=== PATIENT | male | born 1945 | race Caucasian/White ===

== ENCOUNTER 2020-06-07 17:47 | Inpatient (IN) ==
[2020-06-07] MEDS ORDERED: SODIUM CHLORIDE 0.9% 1000ML 1,000 ML IV ONE (18:07)
--- NOTE | 2020-06-07 18:20 | Emergency Department Note ---
Impression & Plan Cerebrovascular accident, Left arm weakness ED Provider Note Provider: Karan Guzman MD DATE OF SERVICE: 06/07/2020 CHIEF COMPLAINT: Left arm weakness 75-year-old gentleman with a past medical history of diabetes HISTORY OF PRESENT ILLNESS: Patient is a not currently on any medications prese nts today referred from Dr. [facility] with concerns for stroke. Patient presents with daughter. He reports that over the last 3 to 4 weeks he has had 2 prior episodes of mini stroke/TIA but has not been hospitalized. Patient states he has had some issues with weakness in the second time for about 24 hours was unable to speak. This returned and then went to bed okay last night awoke this morning around 6:00 in the morning or so and had significant weakness of the left arm and actually fell out of bed. Patient states he is been walking okay denies any headache. Denies any speech issues today or vision changes. Denies any pain in the chest or abdomen. Patient is predominantly right-handed dominant states this is working okay as well as his legs. Patient denies any again visual changes or facial droop. Patient not currently on any anticoagulants or antiplatelet agents. REVIEW OF SYSTEMS: A total of 10 review of systems was obtained and negative except as stated above in the HPI. PAST MEDICAL HISTORY: As noted above MEDICATIONS: Herbals but no prescription medications SOCIAL HISTORY: Smoker, , lives at home PHYSICAL EXAM: GENERAL: alert and oriented in no acute distress on stretcher Head: normocephalic and atraumatic EYES: No injection, discharge or icterus. PERRL, EOMI. ENT: Mucous membranes pink and moist. Pharynx without erythema or exudate. LUNGS: Airway patent. No retractions. Breath sounds clear HEART: Regular rate and rhythm. No chest wall tenderness ABDOMEN: Soft and non-tender, without guarding or rebound. SKIN: Acyanotic, warm, dry, without rashes EXTREMITIES: Without swelling, tenderness or deformity other than a few very minor scattered healing abrasions. NEUROLOGICAL: No aphasia. No facial droop or slurred speech. Ambulatory. P ronator drift and diminished strength of the left upper extremity. Cerebellar ataxia with diminished left [id number] response but intact right [id number]. No leg drop noted. EK bpm sinus rhythm with PAC and PVCs. No acute ST segment elevation is noted although some scattered nonspecific inferior T wave inversions are noted. QTc 445. CONTINUOUS CARDIAC MONITORING: was ordered and showed a heart rate of bpm in Patient's hypertension was referred to the hospitalist HOSPITAL COURSE: [id number] Patient was first seen and H&P performed. 1934 Patient reassessed and updated still with left arm weakness. Patient and daughter were updated regarding plan for admission for further stroke work-up. I did discuss this with Dr. Patiño of [place] tele-stroke given the CTA of the head findings and the M2 stenosis versus thrombus. She agrees that there is no acute neuro interventional therapy to be offered at this time recommended standard stroke work-up and therapy. [address] Fuchs of [facility] hospitalist team. Patient's laboratory studies and imaging reviewed. Differential includes Infection, dehydration, metabolic abnormality, hypo/hyperglycemia, electrolyte disturbance, anemia, hypoxia, cardiac sources, intracerebral event, toxicologic, neurologic, as well as other pathologies. IMPRESSION/MEDICAL DECISION MAKING: Presentation seems very concerning for acute stroke versus TIA. Diabetic but not on medications were antiplatelets or anticoagulants. Outside the window for TPA. CT scan was completed as well as vessel scan and blood work. Discussed w ith patient and daughter and they are agreeable with the plan for further neurological inpatient care given his symptoms and my concern that this likely represents an acute CVA. Troponin detectable but not abnormal. No evidence of acute anemia or leukocytosis. Renal function within normal limits. No significant electrolyte abnormality. No evidence of liver dysfunction. CT Head without bleed but 2.8cm R frontal lobe hypodensity age indeterminate. Neck with plaques but no significant stenosis or dissection. 2.2cm R parotid gland incidentally noted. CTA of the head with an M2 stenosis versus thrombus. Discussed with tele-stroke. Did give aspirin. Tele-stroke, Dr. Patiño, states no acute neuro interventional therapy to be beneficial at this time for this patient. We will continue with standard stroke care and the hospitalist be contacted for further inpatient care. DIAGNOSIS: Stroke, Left arm weakness DISPOSITION: Hospitalist will evaluate Patient was agreeable with this plan. Past Med/Surg History Social History Feels Safe at Home: Yes Smoking Status: Current every day smoker Allergies Allergies Allergy/AdvReac Type Severity Reaction Status Date / Time No Known Allergies Allergy Unverified 06/07/20 18:31 Home Meds Home Medications Medication Instructions Recorded Confirmed magnesium hydroxide [Milk of 0 ml PO BID PRN 06/07/20 06/07/20 Magnesia] Results & Data (ED) Vital Signs Vital Signs - 24 hr 06/07/20 17:50 06/07/20 18:00 06/07/20 18:20 Temperature 37 C Temperature Source Oral Pulse Rate 81 85 78 Pulse Rate [Apical] 76 Pulse Rate from SpO2 Sensor 80 Respiratory Rate 16 19 21 Respiratory Effort / Characteristics Blood Pressure 160/83 H 158/83 H Blood Pressure [Left Arm] 158/83 H Blood Pressure Mean 108 97 Blood Pressure Mean [Left Arm] 108 Pulse Oximetry 93 91 Oxygen Delivery Method Room Air Sepsis Recent Fever Within 48 Hours No Sepsis New/Unexplained Change in Mental Status No Sepsis Action Taken by Nursing No Action Required 06/07/20 18:30 06/07/20 19:58 06/07/20 20:00 Temperature Temperature Source Pulse Rate 77 74 72 Pulse Rate [Apical] Pulse Rate from SpO2 Sensor 70 70 Respiratory Rate 20 16 19 Respiratory Effort / Characteristics Blood Pressure 138/85 151/78 H Blood Pressure [Left Arm] Blood Pressure Mean 92 96 Blood Pressure Mean [Left Arm] Pulse Oximetry 95 93 Oxygen Delivery Method Sepsis Recent Fever Within 48 Hours Sepsis New/Unexplained Change in Mental Status Sepsis Action Taken by Nursing 06/07/20 20:30 06/07/20 21:00 Temperature Temperature Source Pulse Rate 73 Pulse Rate [Apical] 62 Pulse Rate from SpO2 Sensor Respiratory Rate 25 H 18 Respiratory Effort / Characteristics Non-Labored Spontaneous Blood Pressure Blood Pressure [Left Arm] Blood Pressure Mean Blood Pressure Mean [Left Arm] Pulse Oximetry 96 Oxygen Delivery Method Room Air Sepsis Recent Fever Within 48 Hours Sepsis New/Unexplained Change in Mental Status Sepsis Action Taken by Nursing Laboratory Data Result diagrams: 06/07/20 18:20 06/07/20 18:20 Lab Results 06/07/20 06/07/20 06/07/20 Range/Units 18:20 18:20 18:20 WBC 8.20 (4.8-10.8) K/uL RBC 5.30 (4.7-6.1) M/uL Hgb 16.2 (14.0-18.0) g/dL POC Hgb (14.0-18.0) g/dl Hct 47.1 (42-52) % POC Hct (42-52) % MCV 88.9 (80-100) fL MCH 30.6 (25-34) pg MCHC 34.4 (32-36) g/dL RDW Std Deviation 42.9 (36.4-46.3) fL RDW Coeff of Nell 13.3 (11.5-14.5) % Plt Count 169 (130-400) K/uL MPV 10.4 (7.4-10.4) fL Immature Gran % (Auto) 0.5 % Neut % (Auto) 67.6 % Lymph % (Auto) 18.4 % [place] % (Auto) 10.7 % Eos % (Auto) 2.6 % Baso % (Auto) 0.2 % Neut # (Auto) 5.54 (1.4-6.5) K/uL Lymph # (Auto) 1.51 (1.2-3.4) K/uL [place] # (Auto) 0.88 H (0.11-0.59) K/uL Eos # (Auto) 0.21 (0-0.5) K/uL Baso # (Auto) 0.02 (0-0.2) K/uL Immature Gran # (Auto) 0.04 H (0.00-0.02) K/uL PT 10.4 (9.0-12.0) Seconds INR 1.0 (0.9-1.1) APTT 25.1 (21.0-31.0) Seconds PTT Ratio 0.9 POC Sodium (135-144) mmol/L Sodium (136-145) mmol/L POC Potassium (3.3-5.0) mmol/L Potassium (3.5-5.1) mmol/L POC Chloride (101-112) mmol/L Chloride (98-107) mmol/L Carbon Dioxide (21-32) mmol/L POC Total CO2 (24-31) mmol/L Anion Gap (3-11) POC Anion Gap (16-25) mmol/L POC BUN (7-18) mg/dl BUN (7-18) mg/dl Creatinine (0.6-1.4) mg/dl POC Creatinine (0.6-1.3) mg/dl Est Cr Clr Drug Dosing ml/min Est GFR ( Amer) Est GFR (Non-Af Amer) BUN/Creatinine Ratio (10-20) Glucose (70-99) mg/dl POC Glucose (other) (70-99) mg/dl Calcium (8.5-10.1) mg/dl POC Ioniz Calcium Rose (1.12-1.32) mmol/l Magnesium (1.8-2.4) mg/dl Total Bilirubin (0.2-1) mg/dl AST (15-37) U/L ALT (12-78) U/L Alkaline Phosphatase (45-117) U/L Troponin I (0-0.045) ng/ml Total Protein (6.4-8.2) gm/dl Albumin (3.4-5.0) gm/dl Globulin (2.5-4.0) gm/dl Albumin/Globulin Ratio (0.9-2) TSH (0.300-4.500) uIu/ml Blood Type Cancelled Antibody Screen Cancelled 06/07/20 06/07/20 06/07/20 Range/Units 18:20 18:29 19:21 WBC (4.8-10.8) K/uL RBC (4.7-6.1) M/uL Hgb (14.0-18.0) g/dL POC Hgb 16.3 (14.0-18.0) g/dl Hct (42-52) % POC Hct 48 (42-52) % MCV (80-100) fL MCH (25-34) pg MCHC (32-36) g/dL RDW Std Deviation (36.4-46.3) fL RDW Coeff of Nell (11.5-14.5) % Plt Count (130-400) K/uL MPV (7.4-10.4) fL Immature Gran % (Auto) % Neut % (Auto) % Lymph % (Auto) % [place] % (Auto) % Eos % (Auto) % Baso % (Auto) % Neut # (Auto) (1.4-6.5) K/uL Lymph # (Auto) (1.2-3.4) K/uL [place] # (Auto) (0.11-0.59) K/uL Eos # (Auto) (0-0.5) K/uL Baso # (Auto) (0-0.2) K/uL Immature Gran # (Auto) (0.00-0.02) K/uL PT (9.0-12.0) Seconds INR (0.9-1.1) APTT (21.0-31.0) Seconds PTT Ratio POC Sodium 137 (135-144) mmol/L Sodium 141 (136-145) mmol/L POC Potassium 4.6 (3.3-5.0) mmol/L Potassium 4.5 (3.5-5.1) mmol/L POC Chloride 103 (101-112) mmol/L Chloride 108 H (98-107) mmol/L Carbon Dioxide 27 (21-32) mmol/L POC Total CO2 28 (24-31) mmol/L Anion Gap 6.0 (3-11) POC Anion Gap 12.0 L (16-25) mmol/L POC BUN 24 H (7-18) mg/dl BUN 19 H (7-18) mg/dl Creatinine 1.02 (0.6-1.4) mg/dl POC Creatinine 0.9 (0.6-1.3) mg/dl Est Cr Clr Drug Dosing 61.4 ml/min Est GFR ( Amer) 82.9 Est GFR (Non-Af Amer) 71.6 BUN/Creatinine Ratio 19.0 (10-20) Glucose 96 (70-99) mg/dl POC Glucose (other) 98 (70-99) mg/dl Calcium 8.9 (8.5-10.1) mg/dl POC Ioniz Calcium Rose 1.11 L (1.12-1.32) mmol/l Magnesium 2.2 (1.8-2.4) mg/dl Total Bilirubin 0.4 (0.2-1) mg/dl AST 19 (15-37) U/L ALT 23 (12-78) U/L Alkaline Phosphatase 83 (45-117) U/L Troponin I 0.045 (0-0.045) ng/ml Total Protein 7.6 (6.4-8.2) gm/dl Albumin 3.5 (3.4-5.0) gm/dl Globulin 4.1 H (2.5-4.0) gm/dl Albumin/Globulin Ratio 0.9 (0.9-2) TSH 1.860 (0.300-4.500) uIu/ml Blood Type A Positive Antibody Screen NEGATIVE Administered Medications Ioversol (Optiray 320 125ml) 118 ml IV ONCE PRN PRN Reason: Interaction Checking Stop: 06/11/20 18:59 Last Admin: 06/07/20 19:00 Dose: 118 ml Documented by: [id number] Discontinued Medications Albuterol (Duoneb) 3 ml NEB NOW STA Stop: 06/07/20 20:46 Last Admin: 06/07/20 20:59 Dose: 3 ml Documented by: [id number] Aspirin (Aspirin Chew) 324 mg PO NOW STA Stop: 06/07/20 19:37 Last Admin: 06/07/20 19:54 Dose: 324 mg Documented by: [id number] Sodium Chloride (Nss 1000ml) 1,000 mls @ 999 mls/hr IV .Q1H1M ONE Stop: 06/07/20 19:07 Last Infusion: 06/07/20 19:35 Dose: 0 mls/hr Documented by: [id number] Admin: 06/07/20 18:19 Dose: 999 mls/hr Documented by: [id number] Discharge Plan Visit Data Chief Complaint: Stroke/CVA Symptoms Stated Complaint: STROKE SYMPTOMS, SENT FROM [facility] Provider: Karan Guzman Discharge Problem: Cerebrovascular accident, Left arm weakness Patient Disposition: Being Evaluated by Hospitalist Condition: Fair Forms Stand Alone Forms: IPM Safety Services Prescriptions Prescriptions: No Action magnesium hydroxide [Milk of Magnesia] 400 mg/5 mL Suspension 0 ml PO BID PRN (Reason: gi-upset) RF: 0 Referrals Referrals: PCP,NO [Primary Care Provider] - Discharge Problem: Cerebrovascular accident Qualifiers: CVA mechanism: unspecified Qualified Code(s): I63.9 - Cerebral infarction, unspecified
[2020-06-07 18:31] LABS: Basophils # (auto) 0.02 K/uL (0-0.2); Basophils % (auto) 0.2 %; Eosinophils # (auto) 0.21 K/uL (0-0.5); Eosinophils % (auto) 2.6 %; Hematocrit (blood only) 47.1 % (42-52); Hemoglobin 16.2 g/dL (14.0-18.0); Immature Granulocytes # (auto) 0.04 K/uL (0.00-0.02); Immature Granulocytes % (auto) 0.5 %; Lymphocytes # (auto) 1.51 K/uL (1.2-3.4); Lymphocytes % (auto) 18.4 %; Mean Corpuscular Hemoglobin 30.6 pg (25-34); Mean Corpuscular Hgb Conc 34.4 g/dL (32-36); Mean Corpuscular Volume 88.9 fL (80-100); Mean Platelet Volume 10.4 fL (7.4-10.4); Monocytes # (auto) 0.88 K/uL (0.11-0.59); Monocytes % (auto) 10.7 %; Neutrophils # (auto) 5.54 K/uL (1.4-6.5); Neutrophils % (auto) 67.6 %; Platelet Count 169 K/uL (130-400); RDW Coefficient of Variation 13.3 % (11.5-14.5); RDW Standard Deviation 42.9 fL (36.4-46.3)
[2020-06-07 18:45] LABS: iSTAT Creatinine 0.9 mg/dl (0.6-1.3); iSTAT Hemoglobin 16.3 g/dl (14.0-18.0); iSTAT Ionized Calcium 1.11 mmol/l (1.12-1.32); iSTAT Potassium 4.6 mmol/L (3.3-5.0)
[2020-06-07 18:50] LABS: Partial Thromboplastin Ratio 0.9; Partial Thromboplastin Time 25.1 Seconds (21.0-31.0); Prothrombin Time 10.4 Seconds (9.0-12.0)
[2020-06-07 18:56] LABS: Albumin Globulin Ratio 0.9 (0.9-2); Albumin Level 3.5 gm/dl (3.4-5.0); Bilirubin,Total 0.4 mg/dl (0.2-1); Calcium 8.9 mg/dl (8.5-10.1); Creatinine Clr Calc Pharmacy 61.4 ml/min; Est GFR (African American) 82.9; Est GFR (Non-African American) 71.6; Globulin 4.1 gm/dl (2.5-4.0); Potassium 4.5 mmol/L (3.5-5.1); Total Protein 7.6 gm/dl (6.4-8.2); Troponin I 0.045 ng/ml (0-0.045)
[2020-06-07] MEDS ORDERED: OPTIRAY 320 125ml IV PRN (19:00)
[2020-06-07 19:03] LABS: Magnesium 2.2 mg/dl (1.8-2.4)
--- NOTE | 2020-06-07 19:08 | CT Scan Report ---
CT OF THE HEAD WITHOUT CONTRAST CLINICAL HISTORY: Stroke evaluation COMPARISON STUDY: No previous studies for comparison. TECHNIQUE: Helical axial images of the head were obtained without IV contrast. Automated exposure con trol was utilized for the study. A dose lowering technique was utilized adhering to the principles o f ALARA. FINDINGS: No acute intracranial hemorrhage, midline shift or mass effect is present. There is dense b ilateral basal ganglia and right cerebellar hemisphere calcification. There is minimal complication w ithin left cerebellar hemisphere. Ventricular system is normal. Basilar cisterns are patent. There ar e no extra axial collections. There are no findings to suggest acute dural sinus thrombosis or acute territorial infarct. A 2.8 cm hypodensity with loss of hebert-white differentiation within the right fr ontal lobe is noted on image 13 of 28. On this exam, there appears to be volume loss however this inf arct is likely acute to subacute given apparent on CTA. Visualized portions of the sinuses and mastoi d air cells are clear. There are no significant calvarial abnormalities. IMPRESSION: 1. No acute intracranial hemorrhage or mass effect. 2. 2.8 cm hypodensity within the right frontal lobe. This represents an age indeterminate infarct. ACT 112: Negative or not required by law. 1 Electronically signed by: Wagner Mercado M.D. 06/07/2020 7:07 PM
--- NOTE | 2020-06-07 19:13 | CT Scan Report ---
CT ANGIOGRAPHY OF THE NECK WITH CONTRAST CLINICAL HISTORY: Stroke evaluation COMPARISON STUDY: No previous studies for comparison. Technique: CT angiography of the carotid and vertebral arteries was obtained using isango! 320 IV and 3D reconstruction on an independent workstation. NASCET criteria was utilized. Automated exposure c ontrol was utilized for the study. A dose lowering technique was utilized adhering to the principles of ALARA. CT DOSE: 1248.63 mGy.cm Findings: Lung apices are clear. There is no cervical lymphadenopathy. Several right parotid gland le sions measure up to 2.2 cm. The largest lesion demonstrates enhancement. There is moderate plaque wit hin the proximal bilateral internal carotid arteries without significant stenosis. There is no dissec tion within the major vessels of the neck. No aneurysm formation within the major vessels of the neck is noted. There is no cervical spine fracture IMPRESSION: 1. Moderate plaque within the proximal bilateral internal carotid arteries without significant stenos is. 2. No dissection within the major vessels of the neck. 3. A few right parotid gland lesions that measure up to 2.2 cm. Nonemergent ENT consultation is tracy stevens. ACT 112: Negative or not required by law. Electronically signed by: Wagner Mercado M.D. 06/07/2020 7:12 PM
--- NOTE | 2020-06-07 19:20 | CT Scan Report ---
CTA ANGIOGRAPHY OF THE HEAD CLINICAL HISTORY: Stroke evaluation COMPARISON STUDY: No previous studies for comparison. TECHNIQUE: Helical axial images of the head were obtained following uneventful intravenous administr ation of 118 cc of Optiray 320. Sagittal and coronal reconstructions were viewed as well as maximal i ntensity projections on an independent 3-D workstation. Automated exposure control was utilized for the study. A dose lowering technique was utilized adhering to the principles of ALARA. FINDINGS: No acute intracranial hemorrhage, midline shift or mass effect is present. There is calcifi cation within the bilateral basal ganglia and right cerebellar hemisphere. Ventricular system is norm al. The basilar cisterns are patent. There are no extra axial collections. Note is made of a 2.8 cm h ypodensity with loss of hebert-white differentiation within the right frontal lobe. Severe narrowing of a right M2 branch is noted on axial image 92 of 245. This could reflect small intraluminal thrombus or severe stenosis. Otherwise, the major vessels are patent. There is moderate plaque within the bila teral cavernous carotids without stenosis. There is no intracranial aneurysm or dissection. The poste rior circulation is intact. IMPRESSION: 1. Severe narrowing of a right M2 branch. This could reflect a small thrombus or severe stenosis due to plaque. 2. 2.8 cm age indeterminate right frontal lobe infarct. ACT 112: Negative or not required by law. Electronically signed by: Wagner Mercado M.D. 06/07/2020 7:18 PM
[2020-06-07] MEDS ORDERED: ASPIRIN 81 MG CHEW PO STA (19:36)
--- NOTE | 2020-06-07 20:33 | History & Physical Report ---
Date of Service June 07, 2020 Assessment & Plan (1) Cerebrovascular accident: age indeterminate right frontal infarct on CT HTN, elevated Possible chronic BP elevation given cardiomegaly on CXR DM 2 diet-controlled, BSG currently controlled Incidental finding of R parotid lesions on CT ongoing tobacco abuse PCU Aspirin for secondary stroke prevention Initiate statin Rx MRI brain, TTE for stroke work-up Neurology consult RE CVA Initiate lisinopril if with persistent BP elevation ISS BG goal [id number], check hemoglobin A1c Outpatient ENT consultation for incidental finding of right parotid lesions. Nicotine patch PRN DVT prophylaxis per Lovenox subcu Full code Text document was generated using BroadLight recognition software. It may contain grammatical or spelling errors. Kindly contact undersigned for clarification of any documentation item in question. History of Present Illness Chief Complaint: Fall, stroke Primary Care Provider: NO PCP History obtained from patient, family, and records. Medical history significant for DM 2 diet-controlled, ongoing tobacco abuse. 5 months ago patient noted progressive LUE weakness without headache, neck pain, antecedent injury. Family worried about stroke but patient refused consultation. 2 months ago patient noted to have intermittent aphasic episodes. Patient still refused consultation. This morning patient noted more prominent weakness of the left arm which caused him to fall down. No leg weakness. No chest pain, no S OB. Patient seen at local urgent care center. Patient directed to ER for evaluation. Aspirin subsequently given at the ER. Medical History as above Surgical History : Hip surgery Family History : Stroke Personal/Social history : Cigar use, no EtOH intake, retired [employer] Allergies Allergy/AdvReac Type Severity Reaction Status Date / Time No Known Allergies Allergy Unverified 06/07/20 18:31 Home Medications Home Medications Medication Instructions Recorded Confirmed Type magnesium hydroxide [Milk of 0 ml PO BID PRN 06/07/20 06/07/20 History Magnesia] Past Med/Surg History Social History Preferred Language: Yemeni Communication Ability: Effective Court Operations Clerk Required: No Beliefs That Will Affect Care: None Current Living Situation: Spouse and Family Other Information That Helps Us Care for You: No Feels Safe at Home: Yes Safety Concerns: Feels Safe At This Time Smoking Status: Current every day smoker Tobacco Type: cigarettes ; Do You Dip or Chew Tobacco: No ; Second Hand Exposure: Yes ; Tobacco Cessation Education Requested by Patient: No Hx Alcohol Use: No Hx Substance Use: No Review of Systems Review of Systems: As per HPI, all 10 systems reviewed, all other ROS negative Physical Exam Physical Exam: GENERAL: Comfortable, slightly anxious, slightly hard of hearing, no respiratory distress, obese SKIN: Normal color, warm HEENT: [place] palpebral conjunctivae, no ptosis, poor dentition, moist buccal mucosa NECK : Supple, short neck, no tenderness CHEST : Expiratory wheezes that clear on coughing, no tenderness HEART : RRR, no obvious murmurs ABDOMEN: Some distention, nontender EXTREMITIES : Minimal LE swelling, no LE tenderness, no other conspicuous deformities noted NEUROLOGIC : Coherent, no facial asymmetry, slightly hard of hearing, pronator drift left, MMTS BUE 4/5 (left slightly weaker than the right), BLE 4/5, gait and stance not assessed Results & Data Results & Data ([facility]) Vital Signs (Past 12 Hours) Vital Signs Temp Pulse Pulse Resp BP BP Pulse Ox 06/07/20 19:58 74 16 06/07/20 18:30 77 20 138/85 95 06/07/20 18:20 78 76 21 158/83 H 158/83 H 91 06/07/20 18:00 85 19 06/07/20 17:50 37 C 81 16 160/83 H 93 Laboratory Results Laboratory Results WBC 8.20 K/uL (4.8-10.8) 06/07/20 18:20 RBC 5.30 M/uL (4.7-6.1) 06/07/20 18:20 Hgb 16.2 g/dL (14.0-18.0) 06/07/20 18:20 POC Hgb 16.3 g/dl (14.0-18.0) 06/07/20 18:29 Hct 47.1 % (42-52) 06/07/20 18:20 POC Hct 48 % (42-52) 06/07/20 18:29 MCV 88.9 fL (80-100) 06/07/20 18:20 MCH 30.6 pg (25-34) 06/07/20 18:20 MCHC 34.4 g/dL (32-36) 06/07/20 18:20 RDW Std Deviation 42.9 fL (36.4-46.3) 06/07/20 18:20 RDW Coeff of Nell 13.3 % (11.5-14.5) 06/07/20 18:20 Plt Count 169 K/uL (130-400) 06/07/20 18:20 MPV 10.4 fL (7.4-10.4) 06/07/20 18:20 Immature Gran % (Auto) 0.5 % 06/07/20 18:20 Neut % (Auto) 67.6 % 06/07/20 18:20 Lymph % (Auto) 18.4 % 06/07/20 18:20 [place] % (Auto) 10.7 % 06/07/20 18:20 Eos % (Auto) 2.6 % 06/07/20 18:20 Baso % (Auto) 0.2 % 06/07/20 18:20 Neut # (Auto) 5.54 K/uL (1.4-6.5) 06/07/20 18:20 Lymph # (Auto) 1.51 K/uL (1.2-3.4) 06/07/20 18:20 [place] # (Auto) 0.88 K/uL (0.11-0.59) H 06/07/20 18:20 Eos # (Auto) 0.21 K/uL (0-0.5) 06/07/20 18:20 Baso # (Auto) 0.02 K/uL (0-0.2) 06/07/20 18:20 Immature Gran # (Auto) 0.04 K/uL (0.00-0.02) H 06/07/20 18:20 PT 10.4 Seconds (9.0-12.0) 06/07/20 18:20 INR 1.0 (0.9-1.1) 06/07/20 18:20 APTT 25.1 Seconds (21.0-31.0) 06/07/20 18:20 PTT Ratio 0.9 06/07/20 18:20 POC Sodium 137 mmol/L (135-144) 06/07/20 18:29 Sodium 141 mmol/L (136-145) 06/07/20 18:20 POC Potassium 4.6 mmol/L (3.3-5.0) 06/07/20 18:29 Potassium 4.5 mmol/L (3.5-5.1) 06/07/20 18:20 POC Chloride 103 mmol/L (101-112) 06/07/20 18:29 Chloride 108 mmol/L (98-107) H 06/07/20 18:20 Carbon Dioxide 27 mmol/L (21-32) 06/07/20 18:20 POC Total CO2 28 mmol/L (24-31) 06/07/20 18:29 Anion Gap 6.0 (3-11) 06/07/20 18:20 POC Anion Gap 12.0 mmol/L (16-25) L 06/07/20 18:29 POC BUN 24 mg/dl (7-18) H 06/07/20 18:29 BUN 19 mg/dl (7-18) H 06/07/20 18:20 Creatinine 1.02 mg/dl (0.6-1.4) 06/07/20 18: POC Creatinine 0.9 mg/dl (0.6-1.3) 06/07/20 18: Est Cr Clr Drug Dosing 61.4 ml/min 06/07/20 18:20 Est GFR ( Amer) 82.9 06/07/20 18:20 Est GFR (Non-Af Amer) 71.6 06/07/20 18:20 BUN/Creatinine Ratio 19.0 (10-20) 06/07/20 18: Glucose 96 mg/dl (70-99) 06/07/20 18:20 POC Glucose (other) 98 mg/dl (70-99) 06/07/20 18: Calcium 8.9 mg/dl (8.5-10.1) 06/07/20 18:20 POC Ioniz Calcium Rose 1.11 mmol/l (1.12-1.32) L 06/07/20 18: Magnesium 2.2 mg/dl (1.8-2.4) 06/07/20 18:20 Total Bilirubin 0.4 mg/dl (0.2-1) 06/07/20 18:20 AST 19 U/L (15-37) 06/07/20 18:20 ALT 23 U/L (12-78) 06/07/20 18:20 Alkaline Phosphatase 83 U/L (45-117) 06/07/20 18:20 Troponin I 0.045 ng/ml (0-0.045) 06/07/20 18:20 Total Protein 7.6 gm/dl (6.4-8.2) 06/07/20 18:20 Albumin 3.5 gm/dl (3.4-5.0) 06/07/20 18:20 Globulin 4.1 gm/dl (2.5-4.0) H 06/07/20 18:20 Albumin/Globulin Ratio 0.9 (0.9-2) 06/07/20 18:20 Blood Type A Positive 06/07/20 19:21 Antibody Screen NEGATIVE 06/07/20 19:[address] head: 1. No acute intracranial hemorrhage or mass effect. 2. 2.8 cm hypodensity within the right frontal lobe. This represents an age indeterminate infarct. CTA head: 1. Severe narrowing of a right M2 branch. This could reflect a small thrombus or severe stenosis due to plaque. 2. 2.8 cm age indeterminate right frontal lobe infarct. CTA neck: 1. Moderate plaque within the proximal bilateral internal carotid arteries without significant stenosis. 2. No dissection within the major vessels of the neck. 3. A few right parotid gland lesions that measure up to 2.2 cm. Nonemergent ENT consultation is suggested. Chest x-ray as per my interpretation cardiomegaly, atelectasis EKG as per my interpretation rate 75, NSR, normal axis, diffuse T wave abnormalities over the limb leads, PVCs (1) Cerebrovascular accident CVA mechanism: unspecified Qualified Code(s): I63.9 - Cerebral infarction, unspecified
[2020-06-07] MEDS ORDERED: ALBUT/IPRATROP 3MG/0.5MG NEB 3 ML VIAL NEB STA (20:45)
[2020-06-07 21:11] LABS: Thyroid Stimulating Hormone 1.86 uIu/ml (0.300-4.500)
[2020-06-07] MEDS ORDERED: ACETAMINOPHEN 325 MG TAB PO PRN (21:44)
[2020-06-07] MEDS ORDERED: SODIUM CHLORIDE 0.45 % 1,000 ML IV ONE (21:44)
[2020-06-07] MEDS ORDERED: PHARMACIST DISCHARGE MED REC CONSULT PRN (21:44)
[2020-06-07] MEDS ORDERED: PROMETHAZINE HCL 12.5 MG in SODIUM CHLORIDE 0.9% 50 ML IV PRN (21:44)
[2020-06-07] MEDS ORDERED: LORazepam 0.25 MG/0.5 ML VIAL IV PRN (21:44)
[2020-06-07] MEDS ORDERED: DEXTROSE 50% 50 ML SYRINGE IV PRN (23:26)
[2020-06-07] MEDS ORDERED: CARBOHYDRATES FOR HYPOGLYCEMIA PO PRN (23:26)
[2020-06-07] MEDS ORDERED: GLUCAGON FOR INJ 1 MG VIAL SQ PRN (23:26)
[2020-06-07] MEDS ORDERED: GLUCOSE 40% GEL 15 GM TUBE PO PRN (23:26)
[2020-06-07] MEDS ORDERED: GLUCOSE 10 TABS/TUBE PO PRN (23:26)
[2020-06-08 07:47] LABS: Basophils # (auto) 0.02 K/uL (0-0.2); Basophils % (auto) 0.3 %; Eosinophils # (auto) 0.27 K/uL (0-0.5); Eosinophils % (auto) 3.8 %; Hematocrit (blood only) 45.3 % (42-52); Hemoglobin 15.6 g/dL (14.0-18.0); Immature Granulocytes # (auto) 0.01 K/uL (0.00-0.02); Immature Granulocytes % (auto) 0.1 %; Lymphocytes # (auto) 1.67 K/uL (1.2-3.4); Lymphocytes % (auto) 23.3 %; Mean Corpuscular Hemoglobin 31.1 pg (25-34); Mean Corpuscular Hgb Conc 34.4 g/dL (32-36); Mean Corpuscular Volume 90.2 fL (80-100); Mean Platelet Volume 10.7 fL (7.4-10.4); Monocytes # (auto) 0.56 K/uL (0.11-0.59); Monocytes % (auto) 7.8 %; Neutrophils # (auto) 4.64 K/uL (1.4-6.5); Neutrophils % (auto) 64.7 %; Platelet Count 162 K/uL (130-400); RDW Coefficient of Variation 13.4 % (11.5-14.5); RDW Standard Deviation 44.1 fL (36.4-46.3); Red Blood Count 5.02 M/uL (4.7-6.1); White Blood Count 7.17 K/uL (4.8-10.8)
--- NOTE | 2020-06-08 08:18 | Electrocardiogram Report ---
Test Reason : Blood Pressure : / mmHG Vent. Rate : 077 BPM Atrial Rate : 077 BPM P-R Int : 190 ms QRS Dur : 090 ms QT Int : 394 ms P-R-T Axes : 063 054 067 degrees QTc Int : 445 ms Sinus rhythm with Premature supraventricular complexes and with occasional Premature ventricular comp lexes Nonspecific ST and T wave abnormality Abnormal ECG No previous ECGs available Confirmed by Rogelio Perez ([id number]) on 06/08/2020 8:18:21 AM Referred By: REFERRED SELF Confirmed By:Rogelio Perez
[2020-06-08] MEDS: ENOXAPARIN INJ 40 MG/0.4 ML SYR SQ SCH (08:22)
[2020-06-08] MEDS: ATORVASTATIN 40 MG TAB PO SCH (08:22)
[2020-06-08] MEDS: INSULIN ASPART 100 UNITS/ML 3 ML PEN SC SCH ×5 (08:22→21:10)
[2020-06-08] MEDS: ASPIRIN 81 MG ECTAB PO SCH (08:22)
[2020-06-08 08:35] LABS: BUN Creatinine Ratio 17.5 (10-20); Calcium 9.1 mg/dl (8.5-10.1); Creatinine Clr Calc Pharmacy 68.1 ml/min; Est GFR (Non-African American) 81.1; Potassium 4.6 mmol/L (3.5-5.1)
--- NOTE | 2020-06-08 09:00 | XRay Report ---
XR chest 1V portable HISTORY: wheeze COMPARISON: None. FINDINGS: Cardiac silhouette is mildly enlarged. No pleural effusions. No pneumothorax. Mild diffuse interstitial thickening which is likely chronic. Otherwise, no focal lung consolidations to suggest p neumonia. No evidence for pulmonary edema. Old, healed right-sided rib fractures. IMPRESSION: Cardiomegaly with mild interstitial thickening which is likely chronic. ACT 112: Negative or not required by law. Electronically signed by: Bhupendra Cheng M.D. 06/08/2020 8:59 AM
--- NOTE | 2020-06-08 10:57 | Magnetic Resonance Report ---
Brain MRI WITHOUT CONTRAST HISTORY: Stroke symptoms. TECHNIQUE: Multiplanar multisequence MRI of the brain was performed without the use of contrast. COMPARISON STUDY: None. FINDINGS: Small scattered foci of restricted diffusion seen within the right parietal lobe and right subinsular cortex consistent with acute right MCA territory infarcts. Focus of T2 shine through withi n the left posterior frontal lobe on image 8. The midline structures are intact. The orbits are unrem arkable. Paranasal sinuses demonstrate a small retention cyst within the left maxillary sinus. The ma stoid air cells are clear. The major vascular flow voids at the skull base are well-maintained. Mild motion artifact. Small focus of encephalomalacia and gliosis within the right anterior frontal lobe c onsistent with an old infarct. A few scattered foci of T2 hyperintensity seen within the periventricu lar white matter consistent with mild microvascular ischemic change. There is no mass, hematoma, midl ine shift. IMPRESSION: Small scattered acute right MCA territory infarcts as described above. ACT 112: Negative or not required by law. Electronically signed by: Bhupendra Cheng M.D. 06/08/2020 10:56 AM
[2020-06-08] MEDS: CLOPIDOGREL BISULFATE 75 MG TAB PO SCH (12:20)
[2020-06-08] MEDS ORDERED: levETIRAcetam 1,000 MG in 0.9 % SODIUM CHLORIDE 100 ML IV STA (12:21)
--- NOTE | 2020-06-08 13:04 | Cardiology Consultation ---
Date of Consultation June 08, 2020 Assessment & Plan (1) Myocardial infarct, old: (2) Ischemic cardiomyopathy: (3) Hypertension: The findings of the echocardiogram were discussed with the patient at great lengths. He denies any recent cardiac symptoms and imaging does suggest a old infarct pattern. Given his lack of symptoms I do not believe ischemic work-up is warranted at this time. He will be treated medically. He is already been started on lisinopril, aspirin and statin therapy He did have a 10 beat run of ventricular tachycardia on telemetry overnight and metoprolol succinate will be started today as well. Continue to monitor on telemetry overnight History of Present Illness Reason for Consultation: RCA infarct pattern on echocardiogram Requesting Physician: Dr. Jacobs Attending Physician: Naomi Jacobs DO History of Present Illness It was my pleasure to see Mr. Barakat in cardiology consultation today June 08, 2020. He is a very pleasant 75-year-old gentleman who presented to the emergency department in the evening of 06/07/2020 with strokelike symptoms. Age indeterminate right frontal infarct pattern was present on CT of the head. He was admitted to telemetry and states he is feeling better this morning. He denies any cardiac complaints of chest pain, shortness of breath, palpitations, lightheadedness, dizziness or syncope. Upon further questioning he states he remembers only having one episode of severe chest pain in his life that occurred in the setting of heat exhaustion in 1985. He has never been evaluated by a vascular radiologist and receives only scant medical care. He denies any chest pain, shortness of breath, palpitations, lightheadedness, dizziness or syncope. Allergies Allergy/AdvReac Type Severity Reaction Status Date / Time No Known Allergies Allergy Unverified 06/07/20 18:31 Home Medications Home Medications Medication Instructions Recorded Confirmed Type magnesium hydroxide [Milk of 0 ml PO BID PRN 06/07/20 06/07/20 History Magnesia] Patient History Social History Preferred Language: Niuean Communication Ability: Effective Chief Medical Director Required: No Beliefs That Will Affect Care: None Current Living Situation: Spouse and Family Other Information That Helps Us Care for You: No Feels Safe at Home: Yes Safety Concerns: Feels Safe At This Time Smoking Status: Current every day smoker Tobacco Type: cigarettes ; Do You Dip or Chew Tobacco: No ; Second Hand Exposure: Yes ; Tobacco Cessation Education Requested by Patient: No Hx Alcohol Use: No Hx Substance Use: No Review of Systems Review of Systems: All systems reviewed & are unremarkable except as noted in HPI & below Physical Exam Physical Exam: General: Awake, alert and oriented x 3. No acute distress. HEENT: Normocephalic, atraumatic. Pupils equal, round and reactive to light and accommodation. Extraocular muscles are intact. Anicteric sclera. Moist mucous membranes. Neck: No JVD. No bruit. Cardiovascular: Regular. Positive S-4. Normal S-1 and S-2. No S-3. No murmurs or rubs. Pulmonary: Clear to auscultation B/L. No rales, rhonchi or wheezing Abdomen: Bowel sounds x 4, soft. No rebound, guarding or tenderness. No organomegaly. Extremities: No clubbing, cyanosis or edema. +2 pedal pulses bilaterally. Skin: Warm and dry. Results & Data ([facility]) Vital Signs (Past 12 Hours) Vital Signs Temp Pulse Pulse Resp BP Pulse Ox 06/08/20 12:05 36.6 C 75 20 149/84 H 91 06/08/20 07:22 36.6 C 113 H 20 150/91 H 92 06/08/20 02:17 67 06/08/20 02:14 78
--- NOTE | 2020-06-08 14:43 | Hospitalist Progress Note ---
Date of Service June 08, 2020 Assessment & Plan (1) Cerebrovascular accident: Small scattered acute right MCA territory infarcts present on MRI. ASA and Plavix added for secondary prophylaxis and statin started, also. Neuro consult. Concern for possible seizure, so Robert started and will obtain EEG in am. Telemetry reviewed with 10 beats of NSVT but no atrial arrhythmias noted. See below. PT/OT evaluations. Otherwise tolerating PO without issue. (2) Hypertension: Allow permissive HTN in setting of stroke for at least 48 hours. Currently 140s/80s. Low salt diet (3) Ischemic cardiomyopathy: Observed on echo this morning. Toprol added per Cardiology. will need outpatient follow-up which will be difficult as the patient is [facility]. However, he can more easily travel to [place], so would likely follow-up there for both Cardiology and Neurology follow-up appointments. (4) Myocardial infarct, old: Toprol added as above. (5) DMII (diabetes mellitus, type 2): reported diet controlled DMII per prior notes. Glucose has been at goal without medications. A1C still pending. (6) Lesion of parotid gland: Incidental finding on imaging. Recommend nonurgent outpatient ENT follow- up. (7) Tobacco use: Advised to quit smoking as this is bad for his health and may have contributed to his stroke. Contemplative phase. Presented nicotine replacement options, however, patient not interested at this time. (8) DVT prophylaxis: Lovenox Full Dispo-to home possibly tomorrow once workups are completed and PT/OT have evaluated him. Naomi Jacobs DO [facility] Hospitalist Admission and Anticipated Discharge Date Admission Date: June 07, 2020 Subjective Pt feels well tonight denies any issues or symptoms reports his LUE weakness is improving he has been walking to and from bathroom without issue per daughter who is at bedside he has been eating without issue He doesn't see a PCP and apparently had an old heart attack with subsequent cardiomyopathy found on echo today. Toprol started. Denies chest pain or SOB Review of Systems Review of Systems: All systems reviewed & are unremarkable except as noted in Subjective Physical Exam Physical Exam: CONSTITUTIONAL: obese, vitals as above, generally well- appearing EYES: EOMI bilaterally, pupils and round and equal bilaterally, normal conjunctivae, no scleral icterus ENT: external ear and nose normal, oropharynx clear, MMM RESPIRATORY: mostly clear to auscultation bilaterally with occasional wheezes heard throughout. No respiratory distress. CARDIOVASCULAR: regular rate and rhythm, S1 and 2 heard without murmurs, gallops or rubs, no JVD, no peripheral edema GASTROINTESTINAL: soft, nontender, no guarding MUSCULOSKELETAL: strength 5/5 throughout, head is normocephalic and atraumatic SKIN: warm and dry NEUROLOGIC: patellar DTRs 2+ bilat. No facial palsy, no dysarthria. CN 2-12 grossly intact, no sensory deficit, normal cognition, normal speech, no tremor PSYCHIATRIC: alert cooperative and oriented to person, place and time. Results & Data Results & Data ([facility]) Vital Signs (Past 12 Hours) Vital Signs Temp Pulse Resp BP Pulse Ox 06/08/20 12:05 36.6 C 75 20 149/84 H 91 06/08/20 07:22 36.6 C 113 H 20 150/91 H 92 Laboratory Results Short CBC 06/07/20 06/08/20 Range/Units 18:20 07:07 WBC 8.20 7.17 (4.8-10.8) K/uL Hgb 16.2 15.6 (14.0-18.0) g/dL Hct 47.1 45.3 (42-52) % Plt Count 169 162 (130-400) K/uL BMP 06/07/20 06/08/20 18:20 07:07 Sodium 141 138 Potassium 4.5 4.6 Chloride 108 H 106 Carbon Dioxide 27 24 BUN 19 H 16 Creatinine 1.02 0.92 Glucose 96 101 H Calcium 8.9 9.1 Cardiac Enzymes 06/07/20 Range/Units 18:20 Troponin I 0.045 (0-0.045) ng/ml Liver Function 06/07/20 Range/Units 18:20 Total Bilirubin 0.4 (0.2-1) mg/dl AST 19 (15-37) U/L ALT 23 (12-78) U/L Alkaline Phosphatase 83 (45-117) U/L Albumin 3.5 (3.4-5.0) gm/dl Diagnostic Findings TTE (06/08/20): EF 45 %, evidence of old RCA infarct (wall motion abnormality) No evidence of interatrial shunt +pulmonary HTN Brain MRI WITHOUT CONTRAST HISTORY: Stroke symptoms. TECHNIQUE: Multiplanar multisequence MRI of the brain was performed without the use of contrast. COMPARISON STUDY: None. FINDINGS: Small scattered foci of restricted diffusion seen within the right parietal lobe and right subinsular cortex consistent with acute right MCA territory infarcts. Focus of T2 shine through within the left posterior frontal lobe on image 8. The midline structures are intact. The orbits are unremarkable. Paranasal sinuses demonstrate a small retention cyst within the left maxillary sinus. The mastoid air cells are clear. The major vascular flow voids at the skull base are well-maintained. Mild motion artifact. Small focus of encephalomalacia and gliosis within the right anterior frontal lobe consistent with an old infarct. A few scattered foci of T2 hyperintensity seen within the periventricular white matter consistent with mild microvascular ischemic change. There is no mass, hematoma, midline shift. IMPRESSION: Small scattered acute right MCA territory infarcts as described above. Medications Administered Current Inpatient Medications Acetaminophen (Tylenol) 650 mg PO Q4H PRN PRN Reason: Pain or Fever Stop: 07/07/20 21:43 Aspirin (Ecotrin Ectab) 81 mg PO [facility] Stop: 07/08/20 08:59 Last Admin: 06/08/20 08:22 Dose: 81 mg Documented by: Atorvastatin Calcium (Lipitor) 40 mg PO [facility] Stop: 07/08/20 08:59 Last Admin: 06/08/20 08:22 Dose: 40 mg Documented by: Clopidogrel [facility] ([facility]) [facility] Stop: 07/08/20 11:51 Last Admin: 06/08/20 12:20 Dose: 75 mg Documented by: Dextrose (Dextrose 50%) 25 - 50 ml IV UD PRN; Protocol PRN Reason: Hypoglycemia Protocol Stop: 07/07/20 23:25 Enoxaparin Sodium (Lovenox) 40 mg SQ QAM [facility] Stop: 07/08/20 08:59 Last Admin: 06/08/20 08:22 Dose: 40 mg Documented by: Glucagon (Glucagen) 1 mg SQ UD PRN; Protocol PRN Reason: Hypoglycemia Protocol Stop: 07/07/20 23:25 Glucose (Dex4 Glucose) 4 - 8 tabs PO UD PRN; Protocol PRN Reason: Hypoglycemia Protocol Stop: 07/07/20 23:25 Glucose (Glucose 40%) 15 - 30 gm PO UD PRN; Protocol PRN Reason: Hypoglycemia Protocol Stop: 07/07/20 23:25 Promethazine HCl 12.5 mg/ (Sodium Chloride) 50.5 mls @ 202 mls/hr IV Q6H PRN PRN Reason: Nausea And Vomiting Stop: 07/07/20 21:43 Lorazepam (Ativan) 0.25 mg in 0.5 mls @ 0.5 mls/min IV Q4H PRN PRN Reason: Anxiety Stop: 07/07/20 21:43 Insulin Aspart (Novolog Flexpen) 0 units SC ACHS [facility] Stop: 07/07/20 23:29 Last Admin: 06/08/20 12:20 Dose: 1 units Documented by: Levetiracetam (Keppra) 500 mg PO BID [facility] Stop: 07/08/20 20:59 Metoprolol Succinate (Toprol Xl) 25 mg PO QAM [facility] Stop: 07/08/20 14:44 Miscellaneous (Carbohydrates For Hypoglycemia) 15 - 30 gm PO UD PRN PRN Reason: Hypoglycemia Protocol Stop: 07/07/20 23:25 Miscellaneous Information (Pharmacist Discharge Med Rec Consult) 1 ea N/A UD PRN PRN Reason: Consult Stop: 07/07/20 21:43 (1) Cerebrovascular accident CVA mechanism: unspecified Qualified Code(s): I63.9 - Cerebral infarction, unspecified
[2020-06-08] MEDS: METOPROLOL SUCC 25MG EXT REL TAB PO SCH (15:09)
--- NOTE | 2020-06-08 19:06 | Consultation Report ---
DATE OF CONSULTATION: 06/08/2020 REASON FOR CONSULTATION: Episode of left-sided weakness. HISTORY OF PRESENT ILLNESS: The patient is a 75-year-old right-handed male who does not seek regular medical attention and has diet-controlled diabetes. On this background, he has had several spells over the last several months. In October or November, he was working in the barn and remembers falling over. Unclear if there was loss of consciousness, but his daughter indicates he was vaguely not right for a day or two. In February, he had an episode when waking from sleep in the morning that his arms pulled up to the shoulders and did some jerking. He cried out before that episode and was mute for some period of time thereafter and was gradually better toward the end of the day. No focal weakness was noted at that time, although the daughter thought he may have had a stroke. He was not incontinent or injured with that event. On the morning of admission yesterday, he was lying in bed, attempted to get out of bed and fell out of bed. He does not believe he lost consciousness, but apparently he did. He apparently was stiffened up and was incontinent. Details of that are unknown to this examiner, but upon awakening, he had left-sided weakness which has persisted. The patient has no prior history of stroke, ND or seizure. His only home medications were magnesium. His weight has been stable. He has not had any chest pain. He has a chronic cough, no hemoptysis. No blood in his urine or stool. No chest pain, palpitation, shortness of breath. The patient has no history of ND, stroke, DVT or cancer. PAST SURGICAL HISTORY: Right hip replacement. SOCIAL HISTORY: Smokes, does not drink alcohol. Is a retired hobson. FAMILY HISTORY: Parents had both heart disease and stroke. ALLERGIES: None. HOME MEDICINES: Magnesium. LABORATORY DATA: White count, H and H and platelet count are normal. PT, PTT are normal. Blood sugar on admission was 96. Cholesterol 263, triglycerides 159, LDL 185, HDL 46. CT of the head shows possible right frontal hypodensity. This represents an age indeterminate infarct. CTA of the head shows severe narrowing of the right M2 branch. This could reflect a small thrombus or severe stenosis due to plaque and a 2.8 cm age indeterminate right frontal lobe infarct. CTA of the neck shows moderate plaque within the proximal bilateral internal carotid arteries without stenosis. No dissection. Right parotid gland lesions measuring 2.2 cm. Chest x-ray: Cardiomegaly with mild interstitial thickening, which is likely chronic. MRI of the brain noncontrast: Small scattered acute right MCA territory infarcts in the right parietal lobe and right subinsular cortex. There is T2 shine through in the left posterior frontal lobe. There is an area of encephalomalacia and gliosis within the right anterior frontal lobe consistent with an old infarct. Electrocardiogram: premature supraventricular complexes and occasional premature ventricular complexes, nonspecific ST-T wave abnormalities. Echocardiogram: Normal LV chamber size with moderate hypokinesis, EF of 45%-50%, akinesis, wall thinning of the basal inferior wall along with mild to moderate hypokinesis of the inferior and inferoseptal wall consistent with a prior RCA infarct, diastolic dysfunction. The interatrial septum is intact with no evidence of atrial septal defect. No shunt is noted. Pulmonary hypertension is present. PHYSICAL EXAMINATION: VITAL SIGNS: 36.6, 75, 20, 149/84, 105, 91%. NEUROLOGIC: The patient is awake and alert. Speech and language are normal. Affect is appropriate. There is no right/left confusion and naming and repetitions are normal. Pupils are equal, round, reactive to light. It was difficult to visualize the optic nerve. Sapp were full. No visual extinction. Normal facial sensation. Mild flattening of the left nasolabial fold. Tongue is midline. Speech is nondysarthric. Motor: Left upper extremity is diffusely about 3+/5. There is a mild left drift and mildly decreased left rapid alternating movements. I believe strength to be symmetric in the bilateral lower extremities. Reflexes are symmetric. Toes are downgoing. There is some dystaxia in the left upper extremity. [id number] is normal. Sensation is intact to light touch and temperature. There is no double simultaneous extinction. Of note, there is some tremor with intention bilaterally but the patient has fairly rhythmic twitching of left fingers 4 and 5. This apparently is new. 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 PLAN: Aspirin and Plavix at present. Dual antiplatelet therapy for 21 days if the patient can afford Plavix. Otherwise, aspirin 81 mg. Statin therapy. I would allow his blood pressure to run as it has been at the moment given that he has MCA stenosis, but over time, a gradual reduction of blood pressure is reasonable. Defer to primary care regarding assessment of need for treatment of diabetes. Recommend Zio patch as an outpatient to rule out atrial dysrhythmia. This patient's presentation sounds as if there may have been seizure with both the second and the third event. I see some ongoing twitching of the left fingers 4 and 5, which do not resolve with a change in position or posture. This is suspicious for focal seizure activity. We will load the patient with a gram of Keppra followed by 500 mg b.i.d. EEG in the morning. MTDD
[2020-06-08] MEDS: levETIRAcetam 500 MG TAB PO SCH (21:32)
[2020-06-09] MEDS: INSULIN ASPART 100 UNITS/ML 3 ML PEN SC SCH ×2 (07:46→12:06)
[2020-06-09] MEDS: CLOPIDOGREL BISULFATE 75 MG TAB PO SCH (08:21)
[2020-06-09] MEDS: ENOXAPARIN INJ 40 MG/0.4 ML SYR SQ SCH (08:21)
[2020-06-09] MEDS: METOPROLOL SUCC 25MG EXT REL TAB PO SCH (08:21)
[2020-06-09] MEDS: levETIRAcetam 500 MG TAB PO SCH (08:22)
[2020-06-09] MEDS: ATORVASTATIN 40 MG TAB PO SCH (08:22)
[2020-06-09] MEDS: ASPIRIN 81 MG ECTAB PO SCH (08:22)
[2020-06-09 09:15] LABS: Estimated Average Glucose 120 mg/dl; Hemoglobin A1C 5.8 % (4.5-5.6)
--- NOTE | 2020-06-09 12:13 | Electroencephalogram ---
EEG Procedure Note Date of Service June 09, 2020 Start / End Times Start Time: 09:22 End Time: 09:[address] Shania Benjamin History A 75-year-old male with episode of stiffening and loss of speech. EEG performed for evaluation of epileptiform activity. Home Medication List Home Medications Medication Instructions Recorded Confirmed Type magnesium hydroxide [Milk of 0 ml PO BID PRN 06/07/20 06/07/20 History Magnesia] Inpatient Medication List Aspirin (Ecotrin Ectab) 81 mg PO [facility] Stop: 07/08/20 08:59 Last Admin: 06/09/20 08:22 Dose: 81 mg Documented by: [id number] Admin: 06/08/20 08:22 Dose: 81 mg Documented by: [id number] Atorvastatin Calcium (Lipitor) 40 mg PO [facility] Stop: 07/08/20 08:59 Last Admin: 06/09/20 08:22 Dose: 40 mg Documented by: [id number] Admin: 06/08/20 08:22 Dose: 40 mg Documented by: [id number] Clopidogrel Bisulfate (Plavix) 75 mg PO [facility] Stop: 07/08/20 11:51 Last Admin: 06/09/20 08:21 Dose: 75 mg Documented by: [id number] Admin: 06/08/20 12:20 Dose: 75 mg Documented by: [id number] Enoxaparin Sodium (Lovenox) 40 mg SQ [facility] Stop: 07/08/20 08:59 Last Admin: 06/09/20 08:21 Dose: 40 mg Documented by: [id number] Admin: 06/08/20 08:22 Dose: 40 mg Documented by: [id number] Insulin Aspart (Novolog Flexpen) 0 units SC [facility] Stop: 07/07/20 23:29 Last Admin: 06/09/20 12:06 Dose: Not Given Documented by: [id number] Cosigned by: [id number] Admin: 06/09/20 07:46 Dose: Not Given Documented by: [id number] Cosigned by: [id number] Admin: 06/08/20 21:10 Dose: Not Given Documented by: [id number] Cosigned by: [id number] Admin: 06/08/20 17:50 Dose: Not Given Documented by: [id number] Cosigned by: [id number] Admin: 06/08/20 12:20 Dose: 1 units Documented by: [id number] Cosigned by: [id number] Admin: 06/08/20 08:22 Dose: 3 units Documented by: [id number] Cosigned by: [id number] Admin: 06/08/20 00:00 Dose: Not Given Documented by: [id number] Cosigned by: [id number] Levetiracetam (Keppra) 500 mg PO BID [facility] Stop: 07/08/20 20:59 Last Admin: 06/09/20 08:22 Dose: 500 mg Documented by: [id number] Admin: 06/08/20 21:32 Dose: 500 mg Documented by: [id number] Metoprolol Succinate (Toprol Xl) 25 mg PO QAM [facility] Stop: 07/08/20 14:44 Last Admin: 06/09/20 08:21 Dose: 25 mg Documented by: [id number] Admin: 06/08/20 15:09 Dose: 25 mg Documented by: [id number] Discontinued Medications Albuterol (Duoneb) 3 ml NEB NOW STA Stop: 06/07/20 20:46 Last Admin: 06/07/20 20:59 Dose: 3 ml Documented by: [id number] Aspirin (Aspirin Chew) 324 mg PO NOW STA Stop: 06/07/20 19:37 Last Admin: 06/07/20 19:54 Dose: 324 mg Documented by: [id number] Sodium Chloride (Nss 1000ml) 1,000 mls @ 999 mls/hr IV .Q1H1M ONE Stop: 06/07/20 19:07 Last Infusion: 06/07/20 19:35 Dose: 0 mls/hr Documented by: [id number] Admin: 06/07/20 18:19 Dose: 999 mls/hr Documented by: [id number] Sodium Chloride (1/2 Nss) 1,000 mls @ 50 mls/hr IV .Q20H ONE Stop: 06/08/20 17:43 Last Infusion: 06/08/20 10:03 Dose: 0 mls/hr Documented by: [id number] Admin: 06/07/20 22:43 Dose: 50 mls/hr Documented by: [id number] Levetiracetam 1,000 mg/ Sodium (Chloride) 110 mls @ 440 mls/hr IV NOW STA Stop: 06/08/20 12:35 Last Infusion: 06/08/20 13:04 Dose: 0 mls/hr Documented by: [id number] Admin: 06/08/20 12:49 Dose: 440 mls/hr Documented by: [id number] Ioversol (Optiray 320 125ml) 118 ml IV ONCE PRN PRN Reason: Interaction Checking Stop: 06/11/20 18:59 Last Admin: 06/07/20 19:00 Dose: 118 ml Documented by: [id number] Description This is a 21 electrode EEG with a single channel dedicated to limited EKG. The electrodes were placed in accordance with the International 10-20 system. REPORT: At the onset of the EEG the patient is awake. The background is symmetric and well organized. The posterior dominant rhythm is 8.5-9 Hz. There is a normal anterior to posterior gradient with predominant beta activity in the frontal head regions. photic stimulation and hyperventilation were performed and do not induce any abnormalities. Drowsiness is characterized by increased theta activity, reduced blink rate, and decreased myogenic artifact. No stage 2 sleep transients are recorded. Clinical events: None. On review of the video there is no obvious or visible hand shaking. However there are portions of the video where the patient's hands are not visible. IMPRESSION: This is a normal awake and drowsy routine EEG. There is no focal slowing or epileptiform discharges recorded.
--- NOTE | 2020-06-09 12:20 | Cardiology Progress Note ---
Date of Service June 09, 2020 Assessment & Plan (1) Myocardial infarct, old: (2) Ischemic cardiomyopathy: (3) Hypertension: The findings of the echocardiogram were discussed with the patient at great lengths. He denies any recent cardiac symptoms and imaging does suggest a old infarct pattern. Given his lack of symptoms I do not believe ischemic work-up is warranted at this time. He will be treated medically. No further ventricular arrhythmias overnight. Tolerating current medical regimen well would DC home on current meds. Recommend follow-up with PCP as an outpatient. Okay to DC to home from a cardiac standpoint. Subjective Patient seen and examined with at bedside, chart reviewed. Patient states he feels well denies any complaints of chest pain, shortness of breath, palpitations, lightheadedness, dizziness or syncope. Telemetry reviewed: Normal sinus rhythm without arrhythmia or significant ectopy. Review of Systems Review of Systems: All systems reviewed & are unremarkable except as noted in HPI & below Physical Exam Physical Exam: General: Awake, alert and oriented x 3. No acute distress. HEENT: Normocephalic, atraumatic. Pupils equal, round and reactive to light and accommodation. Extraocular muscles are intact. Anicteric sclera. Moist mucous membranes. Neck: No JVD. No bruit. Cardiovascular: Regular. Positive S-4. Normal S-1 and S-2. No S-3. No murmurs or rubs. Pulmonary: Clear to auscultation B/L. No rales, rhonchi or wheezing Abdomen: Bowel sounds x 4, soft. No rebound, guarding or tenderness. No organomegaly. Extremities: No clubbing, cyanosis or edema. +2 pedal pulses bilaterally. Skin: Warm and dry. Results & Data Vital Signs (Past 12 Hours) Vital Signs Temp Pulse Pulse Pulse Resp BP Pulse Ox 06/09/20 11:19 36.6 C 61 20 131/77 93 06/09/20 07:13 36.5 C 70 16 127/88 90 06/09/20 04:00 37 C 58 L 20 129/79 91 06/09/20 00:28 64
[2020-06-09] MEDS ORDERED: STROKE PATIENT DISCHARGE STA (16:08)
--- NOTE | 2020-06-09 16:11 | Discharge Summary ---
Date of Service June 09, 2020 Admission HPI Per Admitting Provider History obtained from patient, family, and records. Medical history significant for DM 2 diet-controlled, ongoing tobacco abuse. 5 months ago patient noted progressive LUE weakness without headache, neck pain, antecedent injury. Family worried about stroke but patient refused consultation. 2 months ago patient noted to have intermittent aphasic episodes. Patient still refused consultation. This morning patient noted more prominent weakness of the left arm which caused him to fall down. No leg weakness. No chest pain, no S OB. Patient seen at local urgent care center. Patient directed to ER for evaluation. Aspirin subsequently given at the ER. Medical History as above Surgical History : Hip surgery Family History : Stroke Personal/Social history : Cigar use, no EtOH intake, retired [employer] Admission Exam Per Admitting Provider GENERAL: Comfortable, slightly anxious, slightly hard of hearing, no respiratory distress, obese SKIN: Normal color, warm HEENT: [place] palpebral conjunctivae, no ptosis, poor dentition, moist buccal mucosa NECK : Supple, short neck, no tenderness CHEST : Expiratory wheezes that clear on coughing, no tenderness HEART : RRR, no obvious murmurs ABDOMEN: Some distention, nontender EXTREMITIES : Minimal LE swelling, no LE tenderness, no other conspicuous deformities noted NEUROLOGIC : Coherent, no facial asymmetry, slightly hard of hearing, pronator drift left, MMTS BUE 4/5 (left slightly weaker than the right), BLE 4/5, gait and stance not assessed Principal Diagnosis Acute stroke Ischemic cardiomyopathy 2/2 presumed CAD Possible seizure Tobacco use Discharge Exam CONSTITUTIONAL: obese, vitals as above, generally well-appearing EYES: EOMI bilaterally, pupils and round and equal bilaterally, normal conjunctivae, no scleral icterus ENT: external ear and nose normal, oropharynx clear, MMM RESPIRATORY: mostly clear to auscultation bilaterally with occasional wheezes heard throughout. No respiratory distress. CARDIOVASCULAR: regular rate and rhythm, S1 and 2 heard without murmurs, gallops or rubs, no JVD, no peripheral edema GASTROINTESTINAL: soft, nontender, no guarding MUSCULOSKELETAL: strength 5/5 throughout, head is normocephalic and atraumatic, no noted tremors in hands SKIN: warm and dry NEUROLOGIC: No facial palsy, no dysarthria. CN 2-12 grossly intact, no sensory deficit, normal cognition, normal speech, no tremor PSYCHIATRIC: alert cooperative and oriented to person, place and time. Discharge Data Allergies Allergy/AdvReac Type Severity Reaction Status Date / Time No Known Allergies Allergy Unverified 06/07/20 18:31 Consultations 06/07/20 19:57 ED Decision to Admit Stat 06/07/20 21:44 Consult Case Management - Discharge Planning Routine Consult Neurology Routine 06/08/20 12:01 Consult Cardiology Routine Ordered Studies 06/07/20 18:06 CT angio head w con Stat CT angio neck with con Stat CT head/brain wo con Stat 06/07/20 21:44 MR brain wo con Routine Hospital Course (1) Cerebrovascular accident: (2) Ischemic cardiomyopathy: (3) Myocardial infarct, old: (4) Lesion of parotid gland: (5) Tobacco use: 75-year-old Evangelical man presents to the ER with progressive left upper extremity weakness causing a fall. He was seen at a local urgent care center and directed to the ER for further evaluation. He was given aspirin the CT scan revealed a 2.8 cm hypodensity within the right frontal lobe representing an age- indeterminate infarct. Vascular imaging of the head and neck revealed moderate plaque within the proximal bilateral internal carotid arteries without significant stenosis, no dissection within the major vessels of the neck and a few right parotid gland lesions that measured up to 2.2 cm with nonemergent ENT consultation suggested. He was also found to have a severe narrowing of the right M2 branch which could reflect a small thrombus or severe stenosis due to plaque. The ER discussed the case with Dr. Patiño of [facility] tele-stroke system and no acute neurologic interventional therapy was recommended. The patient was admitted to the hospitalist service and placed on aspirin and Lipitor an MRI of the brain was ordered revealing small scattered acute right MCA territory infarcts. An echocardiogram was performed revealing a mildly reduced LV systolic function with an EF of 45 to 50%. Akinesis, wall thinning of the basal inferior wall along with mild to moderate hypokinesis of the inferior/inferoseptal acevedo consistent with previous RCA infarct was seen. Otherwise there was normal wall motion with grade II diastolic dysfunction. The interatrial septum was intact with no evidence for an atrial septal defect and injection of contrast documented no interatrial shunt. Pulmonary hypertension was seen with a PASP of 42 mmHg. In light of the new findings of his presumed ischemic cardiomyopathy, cardiology was consulted. Telemetry review revealed a 10 beat run of nonsustained ventricular tachycardia. The patient was started on Toprol-XL. Given his lack of symptoms it was not felt that an ischemic work-up was warranted at this time and he would be treated medically. It was recommended he follow-up with a primary care doctor as an outpatient. Neurology was consulted and added Plavix to his antiplatelet regimen for 21 days. She was concerned there may have been a seizure with his events and did notice some twitching of the left fourth and fifth fingers which did not resolve in change of position or posture. Suspicion was present for focal seizure activity and the patient was loaded with 1 g of Keppra followed by 500 mg of Keppra twice daily. An EEG was performed the following morning revealing no focal slowing or epileptiform discharges. At time of discharge he was hemodynamically stable and afebrile and tolerating p.o. He was mentating and ambulating at baseline and had recovery of his left upper extremity weakness. A follow-up neurology consult was made for the patient prior to discharge and he was given prescriptions for medications that can be paid for off the $4 [employer] list. This was reviewed with he and his daughter extensively as well as the need for primary care follow-up for ongoing medical care. They verbalized understanding with intent to comply. The patient was discharged in stable condition. Notably his total cholesterol was 263, LDL 185, HDL 46, triglycerides 159. Recommend repeat lipid panel in 3 months on Lipitor. Also importantly, the patient was advised strongly to quit smoking as this may have played a role in recent events. He agreed and is in the contemplative phase but did not except the offered to use nicotine patches. Nicotine supplementation is [id number] a nd this was explained to both he and his daughter. He was given the [place] quit line as a right resource to use if needed. Total Time Total Time Spent Total Time Spent (In Minutes): 60 Total Time Includes: Examination of the Patient, Discharge Planning, Medication Reconciliation and Communication With Other Providers Discharge Plan Discharge Items Patient Disposition: Home - Self-Care Reason For Visit: ANEMIA, GI BLEED Discharge Diagnosis: Acute stroke Ischemic cardiomyopathy 2/2 presumed CAD Possible seizure Tobacco use Condition on Discharge: Good Activity: Resume your previous activity Activity Comment: NO DRIVING UNTIL CLEARED BY NEUROLOGIST Non-emergency contact: Primary Care Provider and Neurologist Call non-emergency contact if: you have any medication questions, your symptoms worsen, your pain is not controlled, your pain is unusual for you and your pain is concerning for you Follow-up/Referrals: Shania Wallace PA-C [Physician Chemistry Technician] - 06/13/20 3:00 pm Diet: Low Sodium (2gm) Addtl Attending Provider Instructions: Please take all medications as instructed on discharge list below. You were placed on multiple medications today. The ASPIRIN and ATORVASTATIN should be continued indefinitely to prevention of stroke moving forward. You should also take CLOPIDOGREL for the next 21 days, then stop. The other medication is LEVETIRACETAM which is given twice daily to prevent seizure. You were also found to have a reduced pump function of your heart, which is called CARDIOMYOPATHY. You have been given YOU ARE RESTRICTED FROM DRIVING OR OPERATING HEAVY MACHINERY FOR AT LEAST 6 MONTHS OR UNTIL YOU ARE CLEARED BY THE NEUROLOGIST. You have a follow-up appointment with Shania Wallace PA-C at the [facility] Neurology clinic at the [facility] location in [place], [place]. Please see the time/date above. IT IS STRONGLY ENCOURAGED TO QUIT SMOKING. Please consider nicotine supplementation or just quitting altogether. You may want to enroll in the [place] tobacco cessation program-- call 5-985-SDXG-NOW for more details. You were found to have a nonspecific lesion in your parotid gland (facial gland) which should be nonurgently evaluated by and ENT physician (mergers and acquisitions banker) for further workup. It was a pleasure taking care of you! Please call if you have any questions or problems. You can reach a [facility] hospitalist on duty at [facility] 24 hours a day by calling [phone]. Take care of yourself. Naomi Jacobs, [facility]ist Pending Studies at Discharge: No Stand-Alone Forms: Medications to Prevent Stroke, [facility], Smoking Cessation Medications and DC Order Prescriptions: New clopidogrel 75 mg Tablet 75 mg PO QAM Qty: 30 RF: 0 atorvastatin 40 mg Tablet 40 mg PO QAM Qty: 90 RF: 1 metoprolol succinate 25 mg Tablet Extended Release 24 Hr 25 mg PO QAM Qty: 90 RF: 1 aspirin 81 mg Tablet,Delayed Release (Dr/Ec) 81 mg PO QAM Qty: 90 RF: 1 levetiracetam [Keppra] 500 mg Tablet 500 mg PO BID Qty: 60 RF: 1 Continued magnesium hydroxide [Milk of Magnesia] 400 mg/5 mL Suspension 0 ml PO BID PRN (Reason: gi-upset) RF: 0 Discharge Orders: Discharge Order (Routine); Ordered 06/09/20 Ordered By: Naomi Aden/Other Patient Handouts: High Blood Sugar (Hyperglycemia), Hypoglycemia (Low Blood Sugar), Managing Type 2 Diabetes, Diabetes: Meal Planning Admission Data Admit Date/Time: 06/07/20 20:38 Attending Provider: Naomi Jacobs Admit Provider: Zack Root Primary Care Provider: PCP,NO Other Providers: Zack Root ; Shania Wallace ; Golden Rabago ; Shania Benjamin ; Rowdy Kunz ; Jean Paul Villagran Other Interventions: Discharge Summary Assessment (RN) Last Done: 06/09/20 15:19 DC Date/Time DO NOT enter until pt leaves facility: 06/09/20 17:03
--- NOTE | 2020-06-09 16:38 | Pharmacy Report ---
Pharmacist Stroke Counseling - Date of Service June 09, 2020 - Scope: Pharmacy has been consulted to provide medication discharge counseling for this patient admitted with ischemic stroke as per the Pharmacist Discharge Counseling for Stroke Patients Protocol. - Medications on Discharge: Home Medications Medication Instructions Recorded Confirmed magnesium hydroxide [Milk of 0 ml PO BID PRN 06/07/20 06/07/20 Magnesia] New Rx's Medication Instructions Recorded aspirin 81 mg PO QAM #90 tab 06/09/20 atorvastatin 40 mg PO QAM #90 tab 06/09/20 clopidogrel 75 mg PO QAM #30 tab 06/09/20 levetiracetam [Keppra] 500 mg PO BID #60 tab 06/09/20 metoprolol succinate 25 mg PO QAM #90 tab 06/09/20 - Action: The above medications, specifically ones for stroke treatment/prophylaxis, have been reviewed in detail with the patient goodwill representative (daughter) prior to discharge. This includes indication, common adverse reactions, drug interactions, and medication administration. Medication counseling has been employed using the teach-back method to ensure understanding. - Outcome: The patient goodwill representative (daughter) has demonstrated understanding of the medications. Additional comments: - Stroke Discharge Counseling was performed via telephone due to the COVID-19 pandemic - All medications were discussed in detail with the patient's daughter - She was given an opportunity to have any/all questions answered - Phone number provided in case of further questions Thank you for allowing pharmacy to be involved in the care of this patient. Please call [phone] with any additional questions
== END 2020-06-09 17:03 | disposition home or self-care (01) | DRG 66 ==
LOC: ED 17:47 → SUATTDRO 20:38 → 2W 21:29